=== PATIENT | male | born 1940 | race Caucasian/White ===

== ENCOUNTER 2024-05-06 14:15 | Emergency (ER) | payer BC ==
[~2024-05-06] VITALS: Ht 175.3 cm; Wt 70.0 kg
[~2024-05-06 14:15] MED LIST: AMLO1TAB23 PO; APIX5TAB OR; ASPI-325 PO; ATOR40TA52 PO; GLUC-149 XX; HYDR-4902 PO; HYDR25TA5 PO; LANC-347 TOP; MET50T PO; METF-370 PO; PANT40T PO
[2024-05-06 14:36] VITALS: BP 143/54; PULSE 60; RESP 17; O2SAT 95
--- NOTE | 2024-05-06 16:29 | ED.PDOC ---
HPI (NEURO) HPI Comments confusion, transient Chief Complaint: Fall Injury Comments pt reports an hour ago, he suddenly was confused, hands seemed contracted. lasted 10 mins and now resolved Time Seen by MD: 15:05 Reviewed Notes: Nurses Notes, Medications, Allergies Information Source: Patient, Law Enforcement, Spouse Mode of Arrival: EMS Severity: None Dizziness/Weakness Severity: Does not affect activitie Headache Severity: Mild Timing: Hours Duration: Intermittent Past Medical History PAST MEDICAL HISTORY: AFIB, CAD, CVA, DM, [place] Surgical History: CABG Family History Family History: Unknown Social History Smoker: Non-Smoker Alcohol: Denies ETOH Use Drugs: Denies Drug Use Lives In: Home Constitutional: denies: chills, diaphoresis, fatigue, fever, malaise, sweats, weakness, others EENTM: denies: blurred vision, double vision, ear bleeding, ear discharge, ear drainage, ear pain, ear ringing, eye pain, eye redness, hearing loss, mouth pain, mouth swelling, nasal discharge, nose bleeding, nose congestion, nose pain , photophobia, tearing, throat pain, throat swelling, voice changes, others Respiratory: denies: cough, hemoptysis, orthopnea, SOB at rest, shortness of breath, SOB with excertion, stridor, wheezing, others Cardiovascular: denies: chest pain, dizzy spells, diaphoresis, Dyspnea on exertion, edema, irregular heart beat, left arm pain, lightheadedness, palpitations, PND, syncope, others Gastrointestinal: denies: abdomen distended, abdominal pain, blood streaked bowels, constipated, diarrhea, dysphagia, difficulty swallowing, hematemesis, melena, nausea, poor appetite, poor fluid intake, rectal bleeding, rectal pain, vomiting, others Genitourinary: denies: burning, dysuria, flank pain, frequency, hematuria, incontinence, penile discharge, penile sore, pain, testicle pain, testicle swelling, urgency, others Neurological: reports: others (confusion); denies: dizziness, fainting, headach e, left sided numbness, left sided weakness, numbness, paresthesia, pre-existing deficit, right sided numbness, right sided weakness, seizure, speech problems, tingling, tremors, weakness Musculoskeletal: reports: others (hands contracted); denies: back pain, gout, joint pain, joint swelling, muscle pain, muscle stiffness, neck pain Allergic/Immunocompromised: denies: Difficulty Healing, Frequent Infections, Hives, Itching, others Hematologic/Lymphatic: denies: anemia, blood clots, easy bleeding, easy bruising, swollen glands, others Endocrine: denies: excessive hunger, excessive sweating, excessive thirst, excessive urination, flushing, intolerance to cold, intolerance to heat, unexplained weight gain, unexplained weight loss, others Psychiatric: denies: anxiety, bipolar disorder, depression, hopeless, panic disorder, schizophrenia, sleepless, suicidal, others All Other Systems: Reviewed and Negative Physical Exam General Appearance: No Apparent Distress, Normal HEENT: Normal ENT Inspection, Pharynx Normal, TMs Normal Neck: Full Range of Motion, Non-Tender, Normal, Normal Inspection Respiratory: Chest Non-Tender, Lungs Clear, No Accessory Muscle Use, No Respiratory Distress, Normal Breath Sounds Cardiovascular: No Edema, No JVD, No Murmur, No Gallop, Normal Peripheral Pulses, Regular Rate/Rhythm Breast Exam: Deferred Gastrointestinal: No Organomegaly, Non Tender, No Pulsatile Mass, Normal Bowel Sounds, Soft Genitalia: Deferred Pelvic: Deferred Rectal: Deferred Extremities: No calf tenderness, Normal capillary refill, Normal inspection, Normal range of motion, Non-tender, No pedal edema Musculoskeletal : Apperance: Normal Neurologic: Alert, lithopress operator II-XII nml as Tested, No Motor Deficits, Normal Affect, Normal Mood, No Sensory Deficits, Other (pt [place] and states that he normally uses a cane, but does not have it with him) Cerebellar Function: Normal Reflexes: Normal Skin: Dry, Normal Color, Warm Lymphatic: No Adenopathy Was a procedure done? Was a procedure done?: No Differential Diagnosis (SZ) CVA: CVA, Electrolyte Imbalance, Hypoglycemia, Hypoxemia, Mass Lesion, SAH, TIA X-Ray, Labs, Meds, VS Vital Signs Date Time Temp Pulse Resp B/P (MAP) Pulse Ox O2 Delivery O2 Flow Rate FiO2 05/06/24 14:36 97.8 60 17 143/54 (83) 95 Time of 1ST Reevaluation: 16:25 Reevaluation 1ST: Resolved Patient Education/Counseling: Diagnosis, Treatment, Prognosis, Need For Follow Up Family Education/Counseling: Diagnosis, Treatment, Prognosis, Need For Follow Up Additional Information pt was last admitted august 02 per med record review independent historians- and EMS labs ordered:cbc, bmp, trop, ekg, cxr, head ct pt was advised that he will likely be [id number] due to concerns for tia, which carries a high risk with his history of CVA and cardiac diasease, however pt insists on signing out AMA. was n ot able to convince him to stay Departure 1 Departure Time of Disposition: 16:28 Impression: Primary Impression: TIA (transient ischemic attack) Disposition: LEFT AGAINST MEDICAL ADVICE Condition: Other (unknown) Discharged With: Self, Spouse Critical Care Note Critical Care Time?: Yes (45 min-critical care time only) Critical care comment: Due to concerns for patients condition deteriorating, the care required my highest level of attention and readiness to intervene. I assessed the patient, reviewed the medical records, ordered the appropriate tests and treatments, then reassessed for results and responsiveness. I communicated with medical personnel and consultants and formulated a plan of care. Total critical care time excludes any procedures Stability Stability form required: MURALI Amanda MD May 06, 2024 16:29
== END 2024-05-06 16:36 | disposition left against medical advice (07) ==
LOC: ER 14:15 → EDBD 14:15 → ER 16:36
DX: G45.9 Transient cerebral ischemic attack, unspecified (principal); I48.91 Unspecified atrial fibrillation; I25.10 Atherosclerotic heart disease of native coronary artery without angina pectoris; E11.9 Type 2 diabetes mellitus without complications; I21.9 Acute myocardial infarction, unspecified; Z86.73 Personal history of transient ischemic attack (TIA), and cerebral infarction without residual deficits; Z95.1 Presence of aortocoronary bypass graft
CPT/HCPCS: 99291